=== PATIENT | female | born 1980 | race Caucasian/White ===

== ENCOUNTER 2018-03-14 07:53 | Emergency (ER) | payer OTHER ==
[2018-03-14] MEDS: IBUPROFEN 600 MG TAB PO (09:05)
[2018-03-14 10:52] LABS: HEMATOCRIT 35.4 % (36.0-47.0); HEMOGLOBIN 12.3 g/dl (12.0-15.5); MEAN CORPUSCULAR HEMOGLOBIN 30.9 pg (27.0-33.0); MEAN CORPUSCULAR HGB CONC 34.7 g/dl (32.0-36.5); MEAN CORPUSCULAR VOLUME 88.9 fl (80.0-96.0); PLATELET COUNT, AUTOMATED 253 10^3/uL (150-450); RED BLOOD COUNT 3.98 10^6/uL (4.00-5.40); WHITE BLOOD COUNT 15.8 10^3/uL (4.0-10.0)
[2018-03-14] MEDS: LevoFLOXacin 750 MG TABLET PO (11:10)
[2018-03-19 00:10] LABS: LEGIONELLA ANTIGEN URINE Positive (Negative)
== END 2018-03-14 11:20 | disposition home or self-care (01) ==
LOC: M ED 07:53
DX: J84.114 Acute interstitial pneumonitis (principal); E11.9 Type 2 diabetes mellitus without complications; E07.9 Disorder of thyroid, unspecified; E66.9 Obesity, unspecified; Z20.828 Contact with and (suspected) exposure to other viral communicable diseases; J30.89 Other allergic rhinitis; Z79.899 Other long term (current) drug therapy; Z79.84 Long term (current) use of oral hypoglycemic drugs
CPT/HCPCS: 71046

== ENCOUNTER → 2019-03-18 | Outpatient (CLI) | payer OTHER ==
[~2019-03-18] MED LIST: ACET500T15 PO; ATOR40TA75 PO; FLAX10005 PO; IRON27TA2 PO; LEVA750T7 PO; METF10004 PO; MULTCAP PO; SYNT25TA PO; SYNT88TA2 PO; VITA500T17 PO
--- NOTE | 2019-03-18 12:41 | REPMRS ---
Patient History The patient states she has not had a clinical breast exam in over a year. Patient is nulliparous. Family history of breast cancer in maternal grandmother. Taking unspecified hormones for 10 years. denied. 3D TOMOSYNTHESIS WAS PERFORMED. [facility] lifetime risk for breast cancer is 17.6%. Digital Mammo Screening Bilat: March 18, 2019 - Exam #: [id number] Bilateral CC and MLO view(s) were taken. Technologist: Lanie Santiago, Technologist No prior studies available for comparison. FINDINGS: The breast tissue is heterogeneously dense. This may lower the sensitivity of mammography. There is no evidence of cancer on this mammogram. Assessment: BI-RADS/ACR category 2 mammogram. Benign Findings. Recommendation Routine screening mammogram of both breasts in 1 year (for women over age 40). This mammogram was interpreted with the aid of an FDA-approved computer-aided dectection system. Electronically Signed By: Farhan Mendieta MD 03/18/19 [id number]
== END ==
LOC: M RAD 11:24
PROVIDERS: ATTEND Family Medicine
DX: Z12.31 Encounter for screening mammogram for malignant neoplasm of breast (principal)